=== PATIENT | female | born 1995 | race Two or more races ===

== ENCOUNTER 2020-03-21 08:56 | Day surgery (SDC) | payer MEDICAID ==
[~2020-03-21] VITALS: Ht 154.9 cm; Wt 197.0 kg
[2020-03-21 09:05] VITALS: BP 128/51
[2020-03-21] MEDS ORDERED: fentaNYL/PF 50MCG/1 ML 2ML syringe ONE (09:20)
[2020-03-21] MEDS ORDERED: MIDAZolam 5mg/5ml vial ONE ×2 (09:20→09:21)
[2020-03-21] MEDS ORDERED: LIDOcaine Viscous 15ml cup ONE (09:21)
[2020-03-21 10:05] VITALS: BP 96/61
[2020-03-21 10:15] VITALS: BP 89/58
[2020-03-21 10:25] VITALS: BP 92/51
[2020-03-21 10:35] VITALS: BP 99/58
== END 2020-03-21 10:45 | disposition home or self-care (01) ==
LOC: GI LAB 08:56
PROVIDERS: ATTEND Internal Medicine Gastroenterology
DX: R10.13 Epigastric pain (principal); K29.50 Unspecified chronic gastritis without bleeding; B96.81 Helicobacter pylori [H. pylori] as the cause of diseases classified elsewhere
CPT/HCPCS: 43239; 99152; J2250; J3010; J7040; A4620